=== PATIENT | female | born 1990 | race Caucasian/White ===

== ENCOUNTER 2023-11-15 15:37 | Emergency (ER) | payer MEDICAID, SELFPAY ==
[2023-11-15] MEDS ORDERED: Amoxicillin/Potassium Clav 875 MG TAB ONE (17:52)
== END 2023-11-15 18:03 | disposition home or self-care (01) ==
LOC: CSHERS 15:37
DX: J01.90 Acute sinusitis, unspecified (principal)
CPT/HCPCS: 99283